=== PATIENT | male | born 1950 | race Caucasian/White ===

== ENCOUNTER → 2017-03-10 | Outpatient (CLI) | payer MEDICARE, MEDICAID ==
[~2017-03-10] MED LIST: ASP325T PO; ATEN50TA; CYCL10TA9; FAMO20TA5; FLEXERIL PO; HYDR1CAP2; ISORBIDE; MULT-87; MULT-963 PO; NTR.4SL SL; OMEG-12 PO; SIMV20TA3; SIMV40TA4 PO; SIMV80TA3 PO; TMSL.4C; VITIMIN C PO; [UNRECOGNIZED DRUG - CODE]
== END ==
LOC: WOUNDCARE 10:07
PROVIDERS: ATTEND Nurse Practitioner
DX: L97.523 Non-pressure chronic ulcer of other part of left foot with necrosis of muscle (principal); L97.521 Non-pressure chronic ulcer of other part of left foot limited to breakdown of skin
CPT/HCPCS: 11042; 97597

== ENCOUNTER → 2017-03-10 | Outpatient (CLI) | payer MEDICARE, MEDICAID ==
--- NOTE | 2017-03-10 15:43 | Diagnostic Imaging Report ---
EXAM: 3 views of the left foot. INDICATION: Nonpressure ulcer in the left great toe. FINDINGS: No fracture, dislocation or radiopaque foreign body. There is hallux valgus deformity seen. There is degenerative change at the first MTP joint. No bony erosion is noted. IMPRESSION: No radiographic evidence of osteomyelitis. Dictated by: Dictated on workstation # [id number]
== END ==
LOC: RAD 11:47
PROVIDERS: ATTEND Nurse Practitioner
DX: L97.523 Non-pressure chronic ulcer of other part of left foot with necrosis of muscle (principal); L03.032 Cellulitis of left toe
CPT/HCPCS: 73630

== ENCOUNTER → 2017-03-26 | Outpatient (CLI) | payer MEDICARE, MEDICAID | LOC: WOUNDCARE 15:09 | PROVIDERS: ATTEND Nurse Practitioner | DX: L97.523 Non-pressure chronic ulcer of other part of left foot with necrosis of muscle (principal); L97.521 Non-pressure chronic ulcer of other part of left foot limited to breakdown of skin; L03.032 Cellulitis of left toe | CPT/HCPCS: 11042 ==

== ENCOUNTER → 2017-04-09 | Outpatient (CLI) | payer MEDICARE, MEDICAID | LOC: WOUNDCARE 13:54 | PROVIDERS: ATTEND Nurse Practitioner | DX: L97.523 Non-pressure chronic ulcer of other part of left foot with necrosis of muscle (principal); L97.521 Non-pressure chronic ulcer of other part of left foot limited to breakdown of skin; L03.032 Cellulitis of left toe | CPT/HCPCS: 11042; 87070; 87075; 87205 ==

== ENCOUNTER → 2017-04-16 | Outpatient (CLI) | payer MEDICARE, MEDICAID | LOC: WOUNDCARE 13:51 | PROVIDERS: ATTEND Nurse Practitioner | DX: L97.523 Non-pressure chronic ulcer of other part of left foot with necrosis of muscle (principal); L97.521 Non-pressure chronic ulcer of other part of left foot limited to breakdown of skin; L03.032 Cellulitis of left toe | CPT/HCPCS: 11042 ==

== ENCOUNTER → 2017-05-07 | Outpatient (CLI) | payer MEDICARE, MEDICAID | LOC: WOUNDCARE 13:46 | PROVIDERS: ATTEND Nurse Practitioner | DX: L97.523 Non-pressure chronic ulcer of other part of left foot with necrosis of muscle (principal); L97.521 Non-pressure chronic ulcer of other part of left foot limited to breakdown of skin; L03.032 Cellulitis of left toe | CPT/HCPCS: 11042 ==

== ENCOUNTER → 2023-04-07 | Outpatient (CLI) | payer MEDICARE, MEDICAID ==
[~2023-04-07] MED LIST changes: +HOLD METFORMIN - RECEIVED CONTRAST 20 ML VIAL IV SCH; +IOHEXOL 350 MG/ML 100 ML (OMNIPAQUE 350) VIAL IV ONE; +NS 100 ML (IVPB) BAG IV ONE
[2023-04-07 14:16] LABS: CREATININE SERUM 0.8 MG/DL (0.60-1.30)
--- NOTE | 2023-04-07 16:27 | Diagnostic Imaging Report ---
INDICATION: Carotid and coronary atherosclerotic vascular disease. Post IV contrast-enhanced CT angio neck performed with 2-D and 3-D MIP reconstructions. 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 The cervical vertebral arteries bilaterally are patent and are codominant. We do note a substantial degree of motion limits evaluation of the vasculature particularly at the carotids at the mid to upper third of the neck. No hemodynamically significant vertebral stenosis. The intradural vertebrals, the basilar and the proximal assistant restaurant general manager appeared patent intracranially. Diffuse intimal thickening and plaque in the bilateral common carotids without hemodynamically significant stenosis. There is calcified plaque at the carotid bifurcations resulting in no hemodynamically significant degree of stenosis. The remaining cervical internal carotids have a tortuous course but appeared patent. No visible dissection or acute intimal irregularity. The intracranial ICAs showed non-stenosing calcified plaque at their cavernous segments, at the A1 segments, the ACOM, the proximal anterior and middle cerebral arterial segments patent and unremarkable. IMPRESSION: Limited by motion. No hemodynamically significant cervical or proximal intracranial arterial stenosis identified. Dictated by: Dictated on workstation # [id number]
== END ==
LOC: RAD 13:36
PROVIDERS: ATTEND Family Medicine
DX: I77.9 Disorder of arteries and arterioles, unspecified (principal)
CPT/HCPCS: 36415; 70498; 82565; 84520